=== PATIENT | female | born 1975 | race Caucasian/White ===

== ENCOUNTER 2020-07-29 04:31 | Day surgery (SDC) | payer OTHER ==
[2020-07-28 11:05] VITALS: BMI 23.7
[2020-07-29] MEDS ORDERED: PROPOFOL 20 ML ONE ×2 (13:43→14:04)
[2020-07-29] MEDS ORDERED: MIDAZOLAM HCL 2 MG/2 ML SINGLE DOSE VIAL ONE (14:04)
[2020-07-29] MEDS ORDERED: DEXAMETHASONE SOD PHOSPHATE 4 MG/1 ML VIAL ONE (14:04)
--- NOTE | 2020-07-29 14:16 | HP ---
History & Physical Update - History History: No Change (irregular menses, fibroid uterus, endometrial polyp) - Physical Physical: No Change - Assessment Assessment: No Change - Plan Plan: No Change (Hysteroscopy, polypectomy, possible myomectomy, D&C)
[2020-07-29] MEDS ORDERED: ceFAZolin SODIUM 1 GM VIAL IVPB ONE (15:00)
--- NOTE | 2020-07-29 15:49 | OP ---
Operative Note - Note: Operative Date: 07/29/20 Pre-Operative Diagnosis: Irregular & excessive menses, endometrial mass, fibroid uterus Operation: Hysteroscopic myomectomy and polypectomy, D&C Findings: Large uterine polyp, submocosal myoma, irregular endometrial lining Post-Operative Diagnosis: Other (Irregular & excessive menses, endometrial polyp, submucosal uterine fibroid) Surgeon: Jorge L Akbar Anesthesiologist/LEAF CONDITIONER: Jessica Villarreal Anesthesia: General Specimens Removed: Uterine polyp. Uterine myoma. Endometrial curettings. Estimated Blood Loss (mls): 10 Blood Volume Replaced (mls): 0 Fluid Volume Replaced (mls): 600 Operative Report Dictated: Yes
[2020-07-29] MEDS ORDERED: oxyCODONE HCL 5 MG TABLET PO PRN (17:07)
[2020-07-29] MEDS ORDERED: ONDANSETRON 4 MG/2 ML VIAL IVPUSH PRN (17:07)
[2020-07-29] MEDS ORDERED: LACTATED RINGERS SOLUTION 1,000 ML IV SCH (17:15)
--- NOTE | 2020-07-29 18:41 | OP ---
DATE OF OPERATION: 07/29/2020 PREOPERATIVE DIAGNOSIS: Irregular and excessive menses, endometrial mass, fibroid uterus. POSTOPERATIVE DIAGNOSIS: Irregular and excessive menses, large endometrial polyp, submucosal uterine fibroids. PROCEDURE: Hysteroscopy, excision of the uterine polyp, resection of submucosal uterine fibroids. SURGEON: Nando Lennon MD. ANESTHESIOLOGIST: Jessica Villarreal MD. ANESTHESIA: General. COMPLICATIONS: None. ESTIMATED BLOOD LOSS: 10 mL. INTRAVENOUS FLUIDS: 600 mL. PATHOLOGY: Uterine polyp, fragments of uterine submucosal myomas, endometrial curettings. PROCEDURE: The patient was met preoperatively. Risks, benefits, and alternatives of surgery were discussed. All questions were answered. The consent form was reviewed and discussed. The patient verbalized understanding and requested to proceed with the surgery. The patient was brought to the OR with the IV running. She was placed on a surgical table in the supine position. The general anesthesia was achieved without difficulty. The patient was then placed in a dorsal lithotomy position using adjustable Cl stirrups. She was examined under anesthesia. Examination under anesthesia revealed a slightly enlarged and bulky uterus with no pelvic or adnexal masses. The uterus appeared to be freely mobile within the pelvis. The cervix was within normal limits. The patient was then prepped and draped in the usual sterile fashion. A timeout procedure was conducted as per standard protocol. The surgeon then proceeded with the operation. A weighted speculum was introduced inside the vagina with good visualization of the cervix. The cervix was grasped with a single-toothed tenaculum. The cervical os was dilated to accommodate a size 25 Leong dilator. A Symphion hysteroscope was then advanced gently into the uterine cavity. Upon entry into the cervical canal, a large endometrial polyp was noted to be protruding from the endometrial cavity and into the cervical canal. The hysteroscope was advanced past the polyp and into the uterine cavity. The uterine polyp was noted to be very large and occupying a significant portion of the uterus. At that point, a Symphion resectoscope was used to completely resect the entire uterine polyp. Once the polyp was resected, the entire uterine cavity could be visualized. Submucosal uterine fibroids were also noted. The submucosal portion of the fibroid was resected using Symphion resectoscope. Excellent hemostasis was noted. Once this was completed, the resectoscope was removed from the patient. A sharp uterine curettage was performed. All of the tissue was submitted to pathology. Once again, a hysteroscope was inserted into the uterine cavity. A normal uterine cavity was noted. The good hemostasis was confirmed. The hysteroscope was then removed from patient. Once again, good hemostasis was noted. Sponge, lap, and instrument counts were correct. The patient was returned to supine position. She was then transferred to recovery room, awakened in stable condition. NANDO LENNON M.D. [id number]
[2020-07-29] MEDS ORDERED: ACETAMINOPHEN 325 MG TABLET (FP) ONE (19:42)
[2020-07-29 20:14] VITALS: BP 107/72; PULSE 90; TEMP 97.3
--- NOTE | 2020-07-31 13:44 | PATH ---
Surgical Pathology Report Patient Name: SARAH COOK [facility]. Rec. #: [id number] /Age/Gender: 1975 (Age: 45) / F Account: [id number] Location: [facility] SURGICAL Taken: 07/29/2020 Received: 07/30/2020 Reported: 07/31/2020 Physicians: Jorge L Akbar M.D. Specimen(s) Received A: ENDOMETRIAL CURETTINGS B: FIBROIDS AND POLYP Clinical History Endometrial polyp, irregular menses, fibroid uterus Final Diagnosis A. ENDOMETRIAL CURETTINGS, DILATION AND CURETTAGE: FRAGMENTS OF ENDOMETRIAL POLYP, SECRETORY ENDOMETRIUM, FIBROMUSCULAR TISSUE CONSISTENT WITH SUBMUCOSAL LEIOMYOMA, AND BENIGN ENDOCERVICAL TISSUE. B. FIBROIDS AND POLYP, HYSTEROSCOPIC FIBROID RESECTION: 3 G, FRAGMENT OF ENDOMETRIAL POLYP AND FIBROMUSCULAR TISSUE CONSISTENT WITH SUBMUCOSAL LEIOMYOMA. Electronically Signed Becky Suarez M.D. Gross Description A. Received in formalin labeled "endometrial curettings," is a 3.5 x 2.2 x 0.3 cm aggregate of traore brown soft tissue fragments. The formalin is filtered and the specimen is entirely submitted in 2 cassettes. B. Received in formalin labeled "fibroids and polyp," is a 3 g, 4.0 x 3.5 x 0.4 cm aggregate of traore-pink soft tissue fragments. The formalin is filtered and the specimen is entirely submitted in 3 cassettes. DL/07/30/2020 saudi/07/30/2020
== END 2020-07-29 20:00 | disposition home or self-care (01) ==
LOC: JASU-SURG 04:31
PROVIDERS: ATTEND Obstetrics & Gynecology
PROC: 0UDB8ZX Extraction of Endometrium, Via Natural or Artificial Opening Endoscopic, Diagnostic (ICD-10-PCS; 2020-07-29)
PROC: 0UB98ZZ Excision of Uterus, Via Natural or Artificial Opening Endoscopic (ICD-10-PCS; principal; 2020-07-29 14:00)
PROC: 0UB97ZX Excision of Uterus, Via Natural or Artificial Opening, Diagnostic (ICD-10-PCS; 2020-07-29 14:00)
DX: N92.1 Excessive and frequent menstruation with irregular cycle (principal); N84.0 Polyp of corpus uteri; D25.0 Submucous leiomyoma of uterus
CPT/HCPCS: 84703; 88305-TC; 94760

== ENCOUNTER 2021-01-31 12:35 | Emergency (ER) | payer OTHER ==
[2021-01-31 12:58] VITALS: BP 127/67; PULSE 83; TEMP 98.2; BMI 24.5
== END 2021-01-31 13:45 | disposition home or self-care (01) ==
LOC: JER 12:35
DX: U07.1 COVID-19 (principal); R53.83 Other fatigue
CPT/HCPCS: 82962; 99283-25

== ENCOUNTER 2024-06-28 04:58 | Day surgery (SDC) | payer OTHER ==
[2024-06-26 08:00] VITALS: BMI 27.2
[2024-06-28] MEDS ORDERED: ALBUTEROL SO4 HFA INHALER IH ONE (09:25)
[2024-06-28 09:32] VITALS: TEMP 98.2
[2024-06-28 10:54] VITALS: BP 109/56; PULSE 60; RESP 18
== END 2024-06-28 11:30 | disposition home or self-care (01) ==
LOC: JASU-ENDO 04:58
PROVIDERS: ATTEND Internal Medicine Gastroenterology
PROC: 0DJD8ZZ Inspection of Lower Intestinal Tract, Via Natural or Artificial Opening Endoscopic (ICD-10-PCS; principal; 2024-06-28 10:00)
DX: Z12.11 Encounter for screening for malignant neoplasm of colon (principal); K57.30 Diverticulosis of large intestine without perforation or abscess without bleeding; K64.8 Other hemorrhoids
CPT/HCPCS: 81025